=== PATIENT | female | born 2000 | race Caucasian/White ===

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

== ENCOUNTER 2020-01-30 19:11 | Inpatient (IN) ==
[2020-01-30 19:50] LABS: Pregnancy Test, Urine Negative (Negative)
[2020-01-30 19:51] LABS: Appearance Urine Cloudy (Clear); Bacteria Urine Automated 1+ (Negative); Bilirubin Urine Negative (Negative); Blood Urine Negative (Negative); Color Urine Yellow; Epithelial Cell Urine Auto >30 /lpf (0-5); Glucose Urine UA Negative (Negative); Ketones Urine Negative (Negative); Leukocyte Esterase Urine Trace (Negative); Nitrite Urine Negative (Negative); Protein Urine Negative (Negative); Urobilinogen Urine Negative (Negative); pH Urine >= 9.0 (4.5-7.5)
--- NOTE | 2020-01-30 19:56 | Emergency Department Note ---
Impression & Plan Suicidal ideation, Depression ED Provider Note NAME: NICOLE TUCKER AGE: 19 SEX: F : 2000 ARRIVES VIA: Walk-In INFORMANT: Patient, ED PROVIDER(S): Ja Simms MD Chief Complaint: Suicidal ideation HPI: Patient is present with suicidal ideation postcleaning. The patient has had worsening thoughts over the last week and initially had thought about running off the road and then has had a plan to run off the road with her vehicle. The patient does not have any prior attempts of suicide. The patient denies HI or AVH. The patient did recently move home to live with her parents with her girlfriend so there have been some adjustments there. The patient has had adequate appetite but has had decreased sleep. The patient has been compliant with her current medications. ROS: See HPI for pertinent positives and negatives. A total of 10 systems were reviewed and otherwise negative. Past medical history: See below Surgical history: See below Social history: See below Physical Exam: GENERAL: Well appearing, well nourished, NAD, non-toxic. EYE EXAM: Normal conjunctiva. PERRL, no anisocoria and EOM's grossly intact w/o pain. [OROPHARYNX: Moist mucus membranes. Grossly normal dentition. ] NECK: Supple, no nuchal rigidity, no adenopathy, non-tender. No signs of meningismus. LUNGS: Clear to auscultation. Normal chest wall mechanics. HEART: NSR, no MRG. ABDOMEN: Abdomen soft, non-tender, normo-active bowel sounds, no masses, no rebound or guarding. BACK: No CVA TTP. SKIN: No rashes and no bruising. UPPER EXTREMITIES: Upper extremities are grossly normal. LOWER EXTREMITIES: Grossly normal, no edema. NEURO EXAM: A&O x3, cranial nerves II-XII grossly intact, normal speech, moves all 4 extremities on command w/o issue. Psych: Positive SI with plan, negative HI or AVH. Differential diagnoses: Mood disorder, infection, hypoglycemia, electrolyte abnormalities, cardiac sources, intracerebral event, toxicologic, trauma, neurologic, as well as other pathologies. Course: Patient was seen and evaluated the bedside. Full history physical exam was performed. MDM: Patient was seen due to concern for SI with plan. Blood work was obtained. Very mild hypokalemia which is ordered for repleted. The patient was seen and evaluated by psych registered nurse hh case manager deemed a voluntary 201 admission. The patient subsequently admitted to 3 S. Past Med/Surg History Medical History Acid reflux Anal fissure Atypical nevi Depression with anxiety Exercise-induced bronchospasm X 1 Lactase deficiency Ovarian cyst Surgical History History of tonsillectomy History of tooth extraction WISDOM TEETH S/P adenoidectomy S/P tube myringotomy Family History Grandfather (Paternal) Breast cancer Mother Hypertension Grandmother (Maternal) Diabetes Grandfather (Maternal) Factor V Leiden mutation Father Allergic rhinitis Denies family history of Ovarian cancer Colorectal cancer Social History Smoking Status: Current every day smoker Tobacco Type: E-cigarettes / Vaping Cigarettes Per Day: VAPES DAILY-SEVERAL; Second Hand Exposure: No; Hx Alcohol Use: Yes Alcohol type: wine Hx Substance Use: No Preferred Language: Belarusian Communication Ability: Effective Visual Impairment: No Limitations Hearing Ability: Normal Staple Shear Operator Required: No Beliefs That Will Affect Care: None marital status: Single Current Living Situation: Other current occupational status: employed Feels Safe at Home: Yes Childhood Exposure to Second-Hand Smoke: No Sexual Activity: has been sexually active within the last 12 months Allergies Allergies Allergy/AdvReac Type Severity Reaction Status Date / Time venlafaxine Allergy Intermediate shortness Verified 08/23/19 09:33 of breath, abdominal pain, visual changes Home Meds Home Medications Medication Instructions Recorded Confirmed cetirizine 10 mg capsule 10 mg PO DAILY PRN 02/01/19 01/30/20 multivitamin with iron 1 tab PO QAM 02/01/19 01/30/20 lactase 9,000 unit chewable tablet 9,000 units PO AC PRN tab 03/05/19 01/30/20 Previous Rx's Medication Instructions Recorded pantoprazole 40 mg tablet,delayed 40 mg PO DAILY #30 tab 10/01/19 release citalopram 10 mg tablet 10 mg PO DAILY #30 tab 01/08/20 Results & Data (ED) Vital Signs Vital Signs - 24 hr 08/12/20 19:16 01/30/20 21:14 01/30/20 23:01 Temperature 37 C Temperature Source Oral Pulse Rate 108 H Pulse Rate [Finger] 88 86 Respiratory Rate 18 18 18 Respiratory Effort / Characteristics Non-Labored Non-Labored Non-Labored Spontaneous Respiratory Depth Normal Normal Respiratory Pattern Regular Blood Pressure 124/75 Blood Pressure [Right Arm] 98/56 L 96/63 L Blood Pressure Mean 91 Blood Pressure Mean [Right Arm] 70 74 Pulse Oximetry 100 98 99 Oxygen Delivery Method Room Air Room Air Room Air Sepsis Recent Fever Within 48 Hours No Sepsis New/Unexplained Change in Mental Status No Sepsis Action Taken by Nursing No Action Required Home Medications Current Medication List: was personally reviewed by me Laboratory Data Attestation: I reviewed the patient's lab results. Result diagrams: 01/30/20 20:19 01/30/20 20:19 Lab Results 01/30/20 01/30/20 01/30/20 Range/Units 19:22 19:22 19:22 WBC (4.8-10.8) K/uL RBC (4.2-5.4) M/uL Hgb (12.0-16.0) g/dL Hct (37-47) % MCV (80-100) fL MCH (25-34) pg MCHC (32-36) g/dL RDW Std Deviation (36.4-46.3) fL RDW Coeff of Vadim (11.5-14.5) % Plt Count (130-400) K/uL MPV (7.4-10.4) fL Immature Gran % (Auto) % Neut % (Auto) % Lymph % (Auto) % [place] % (Auto) % Eos % (Auto) % Baso % (Auto) % Neut # (Auto) (1.4-6.5) K/uL Lymph # (Auto) (1.2-3.4) K/uL [place] # (Auto) (0.11-0.59) K/uL Eos # (Auto) (0-0.5) K/uL Baso # (Auto) (0-0.2) K/uL Immature Gran # (Auto) (0.00-0.02) K/uL Sodium (136-145) mmol/L Potassium (3.5-5.1) mmol/L Chloride (98-107) mmol/L Carbon Dioxide (21-32) mmol/L Anion Gap (3-11) BUN (7-18) mg/dl Creatinine (0.6-1.2) mg/dl Est Cr Clr Drug Dosing ml/min Est GFR ( Amer) Est GFR (Non-Af Amer) BUN/Creatinine Ratio (10-20) Glucose (70-99) mg/dl Calcium (8.5-10.1) mg/dl Total Bilirubin (0.2-1) mg/dl AST (15-37) U/L ALT (12-78) U/L Alkaline Phosphatase (45-117) U/L Total Protein (6.4-8.2) gm/dl Albumin (3.4-5.0) gm/dl Globulin (2.5-4.0) gm/dl Albumin/Globulin Ratio (0.9-2) TSH (0.300-4.500) uIu/ml Urine Color Yellow Urine Appearance Cloudy A (Clear) Urine pH >= 9.0 H (4.5-7.5) Ur Specific [place] 1.020 (1.000-1.030) Urine Protein Negative (Negative) Urine Glucose (UA) Negative (Negative) Urine Ketones Negative (Negative) Urine Blood Negative (Negative) Urine Nitrite Negative (Negative) Urine Bilirubin Negative (Negative) Urine Urobilinogen Negative (Negative) Ur Leukocyte Esterase Trace H (Negative) Urine WBC (Auto) 1-5 (0-5) /hpf Urine RBC (Auto) 0-4 (0-4) /hpf U Hyaline Cast (Auto) 1-5 (0-5) /lpf U Epithel Cells (Auto) >30 H (0-5) /lpf Urine Bacteria (Auto) 1+ H (Negative) Urine Test Negative (Negative) Salicylates (2.8-20) mg/dl Urine Opiates Screen Neg (Neg) Ur Methadone, Qual Neg (Neg) Acetaminophen (10-30) ug/ml Urine Barbiturates Neg (Neg) Ur Phencyclidine (PCP) Neg (Neg) U Amphetamin/Meth Scrn Neg (Neg) MDMA (Ecstasy) Screen Neg (Neg) U Benzodiazepines Scrn Neg (Neg) Ur Cocaine Metabolite Neg (Neg) U Marijuana (THC) Screen Neg (Neg) Ethyl Alcohol mg/dL (0-3) mg/dl 01/30/20 01/30/20 01/30/20 Range/Units 20:19 20:19 20:19 WBC 13.62 H (4.8-10.8) K/uL RBC 4.76 (4.2-5.4) M/uL Hgb 14.2 (12.0-16.0) g/dL Hct 42.7 (37-47) % MCV 89.7 (80-100) fL MCH 29.8 (25-34) pg MCHC 33.3 (32-36) g/dL RDW Std Deviation 39.9 (36.4-46.3) fL RDW Coeff of Vadim 12.3 (11.5-14.5) % Plt Count 294 (130-400) K/uL MPV 10.2 (7.4-10.4) fL Immature Gran % (Auto) 0.6 % Neut % (Auto) 49.8 % Lymph % (Auto) 38.4 % [place] % (Auto) 10.0 % Eos % (Auto) 1.0 % Baso % (Auto) 0.2 % Neut # (Auto) 6.78 H (1.4-6.5) K/uL Lymph # (Auto) 5.23 H (1.2-3.4) K/uL [place] # (Auto) 1.36 H (0.11-0.59) K/uL Eos # (Auto) 0.14 (0-0.5) K/uL Baso # (Auto) 0.03 (0-0.2) K/uL Immature Gran # (Auto) 0.08 H (0.00-0.02) K/uL Sodium 141 (136-145) mmol/L Potassium 3.0 L (3.5-5.1) mmol/L Chloride 110 H (98-107) mmol/L Carbon Dioxide 23 (21-32) mmol/L Anion Gap 8.0 (3-11) BUN 18 (7-18) mg/dl Creatinine 1.02 (0.6-1.2) mg/dl Est Cr Clr Drug Dosing 62.7 ml/min Est GFR ( Amer) 91.1 Est GFR (Non-Af Amer) 78.6 BUN/Creatinine Ratio 17.8 (10-20) Glucose 79 (70-99) mg/dl Calcium 8.8 (8.5-10.1) mg/dl Total Bilirubin 0.3 (0.2-1) mg/dl AST 14 L (15-37) U/L ALT 20 (12-78) U/L Alkaline Phosphatase 104 (45-117) U/L Total Protein 6.8 (6.4-8.2) gm/dl Albumin 3.6 (3.4-5.0) gm/dl Globulin 3.2 (2.5-4.0) gm/dl Albumin/Globulin Ratio 1.1 (0.9-2) TSH 1.700 (0.300-4.500) uIu/ml Urine Color Urine Appearance (Clear) Urine pH (4.5-7.5) Ur Specific [place] (1.000-1.030) Urine Protein (Negative) Urine Glucose (UA) (Negative) Urine Ketones (Negative) Urine Blood (Negative) Urine Nitrite (Negative) Urine Bilirubin (Negative) Urine Urobilinogen (Negative) Ur Leukocyte Esterase (Negative) Urine WBC (Auto) (0-5) /hpf Urine RBC (Auto) (0-4) /hpf U Hyaline Cast (Auto) (0-5) /lpf U Epithel Cells (Auto) (0-5) /lpf Urine Bacteria (Auto) (Negative) Urine Test (Negative) Salicylates < 1.7 L (2.8-20) mg/dl Urine Opiates Screen (Neg) Ur Methadone, Qual (Neg) Acetaminophen < 2 L (10-30) ug/ml Urine Barbiturates (Neg) Ur Phencyclidine (PCP) (Neg) U Amphetamin/Meth Scrn (Neg) MDMA (Ecstasy) Screen (Neg) U Benzodiazepines Scrn (Neg) Ur Cocaine Metabolite (Neg) U Marijuana (THC) Screen (Neg) Ethyl Alcohol mg/dL (0-3) mg/dl 01/30/20 Range/Units 20:19 WBC (4.8-10.8) K/uL RBC (4.2-5.4) M/uL Hgb (12.0-16.0) g/dL Hct (37-47) % MCV (80-100) fL MCH (25-34) pg MCHC (32-36) g/dL RDW Std Deviation (36.4-46.3) fL RDW Coeff of Vadim (11.5-14.5) % Plt Count (130-400) K/uL MPV (7.4-10.4) fL Immature Gran % (Auto) % Neut % (Auto) % Lymph % (Auto) % [place] % (Auto) % Eos % (Auto) % Baso % (Auto) % Neut # (Auto) (1.4-6.5) K/uL Lymph # (Auto) (1.2-3.4) K/uL [place] # (Auto) (0.11-0.59) K/uL Eos # (Auto) (0-0.5) K/uL Baso # (Auto) (0-0.2) K/uL Immature Gran # (Auto) (0.00-0.02) K/uL Sodium (136-145) mmol/L Potassium (3.5-5.1) mmol/L Chloride (98-107) mmol/L Carbon Dioxide (21-32) mmol/L Anion Gap (3-11) BUN (7-18) mg/dl Creatinine (0.6-1.2) mg/dl Est Cr Clr Drug Dosing ml/min Est GFR ( Amer) Est GFR (Non-Af Amer) BUN/Creatinine Ratio (10-20) Glucose (70-99) mg/dl Calcium (8.5-10.1) mg/dl Total Bilirubin (0.2-1) mg/dl AST (15-37) U/L ALT (12-78) U/L Alkaline Phosphatase (45-117) U/L Total Protein (6.4-8.2) gm/dl Albumin (3.4-5.0) gm/dl Globulin (2.5-4.0) gm/dl Albumin/Globulin Ratio (0.9-2) TSH (0.300-4.500) uIu/ml Urine Color Urine Appearance (Clear) Urine pH (4.5-7.5) Ur Specific [place] (1.000-1.030) Urine Protein (Negative) Urine Glucose (UA) (Negative) Urine Ketones (Negative) Urine Blood (Negative) Urine Nitrite (Negative) Urine Bilirubin (Negative) Urine Urobilinogen (Negative) Ur Leukocyte Esterase (Negative) Urine WBC (Auto) (0-5) /hpf Urine RBC (Auto) (0-4) /hpf U Hyaline Cast (Auto) (0-5) /lpf U Epithel Cells (Auto) (0-5) /lpf Urine Bacteria (Auto) (Negative) Urine Test (Negative) Salicylates (2.8-20) mg/dl Urine Opiates Screen (Neg) Ur Methadone, Qual (Neg) Acetaminophen (10-30) ug/ml Urine Barbiturates (Neg) Ur Phencyclidine (PCP) (Neg) U Amphetamin/Meth Scrn (Neg) MDMA (Ecstasy) Screen (Neg) U Benzodiazepines Scrn (Neg) Ur Cocaine Metabolite (Neg) U Marijuana (THC) Screen (Neg) Ethyl Alcohol mg/dL < 3.0 (0-3) mg/dl Administered Medications Discontinued Medications Potassium Chloride (Potassium Chloride 20 Meq Tabcr) 40 meq PO NOW STA Stop: 01/30/20 21:20 Last Admin: 01/30/20 21:24 Dose: 40 meq Documented by: [id number] Discharge Plan Visit Data Chief Complaint: Mental Health Evaluation Stated Complaint: MENTAL HEALTH EVAL ED Provider: Ja Simms Discharge Problem: Suicidal ideation, Depression Forms Stand Alone Forms: Pending Sale To [facility], Suicide Prevention Resources Prescriptions Prescriptions: No Action pantoprazole [Protonix] 40 mg tablet,delayed release (DR/EC) 40 mg PO DAILY Qty: 30 RF: 5 multivitamin with iron tablet 1 tab PO QAM RF: 0 Zyrtec 10 mg capsule 10 mg PO DAILY PRN (Reason: allergy symptoms) RF: 0 Lactaid Fast Act 9,000 unit tablet,chewable 9,000 units PO AC PRN (Reason: lactose intolerance) RF: 0 citalopram 10 mg tablet 10 mg PO DAILY Qty: 30 RF: 2 Discharge Problem: Depression Qualifiers: Depression Type: major depressive disorder Major depression recurrence: single episode Active/Remission status: currently active Major depression episode severity: moderate Qualified Code(s): F32.1 - Major depressive disorder, single episode, moderate
[2020-01-30 20:02] LABS: RBC Urine Automated 0-4 /hpf (0-4)
[2020-01-30 20:10] LABS: Amphetamines+Metham, Urine Neg (Neg); Barbiturates, Urine Neg (Neg); Benzodiazepine, Urine Neg (Neg); Cocaine, Urine Neg (Neg); MDMA (Ecstacy), Urine Neg (Neg); Methadone, Urine Neg (Neg); Opiate, Urine Neg (Neg); Phencyclidine, Urine Neg (Neg)
[2020-01-30 20:45] LABS: Hematocrit (blood only) 42.7 % (37-47); Hemoglobin 14.2 g/dL (12.0-16.0); Mean Corpuscular Hemoglobin 29.8 pg (25-34); Mean Corpuscular Hgb Conc 33.3 g/dL (32-36); Mean Corpuscular Volume 89.7 fL (80-100); Mean Platelet Volume 10.2 fL (7.4-10.4); Platelet Count 294 K/uL (130-400); RDW Coefficient of Variation 12.3 % (11.5-14.5); RDW Standard Deviation 39.9 fL (36.4-46.3); Red Blood Count 4.76 M/uL (4.2-5.4); White Blood Count 13.62 K/uL (4.8-10.8)
[2020-01-30 21:04] LABS: Albumin Level 3.6 gm/dl (3.4-5.0); BUN Creatinine Ratio 17.8 (10-20); Calcium 8.8 mg/dl (8.5-10.1); Creatinine Clr Calc Pharmacy 62.7 ml/min; Est GFR (African American) 91.1; Est GFR (Non-African American) 78.6
[2020-01-30 21:07] LABS: Basophils # (auto) 0.03 K/uL (0-0.2); Basophils % (auto) 0.2 %; Eosinophils # (auto) 0.14 K/uL (0-0.5); Immature Granulocytes # (auto) 0.08 K/uL (0.00-0.02); Immature Granulocytes % (auto) 0.6 %; Lymphocytes # (auto) 5.23 K/uL (1.2-3.4); Lymphocytes % (auto) 38.4 %; Monocytes # (auto) 1.36 K/uL (0.11-0.59); Neutrophils # (auto) 6.78 K/uL (1.4-6.5); Neutrophils % (auto) 49.8 %
[2020-01-30 21:15] LABS: Albumin Globulin Ratio 1.1 (0.9-2); Bilirubin,Total 0.3 mg/dl (0.2-1); Globulin 3.2 gm/dl (2.5-4.0); Thyroid Stimulating Hormone 1.7 uIu/ml (0.300-4.500); Total Protein 6.8 gm/dl (6.4-8.2)
[2020-01-30] MEDS ORDERED: POTASSIUM CHLORIDE 20 MEQ TABCR PO STA (21:19)
[2020-01-30 21:21] LABS: Acetaminophen < 2 ug/ml (10-30); Salicylate < 1.7 mg/dl (2.8-20)
[2020-01-31] MEDS ORDERED: NICOTINE POLACRILEX 2 MG GUM MT PRN (01:17)
[2020-01-31] MEDS ORDERED: BISMUTH SUBSALICYLATE PER ML OMNICELL CHARGE PO PRN (01:17)
[2020-01-31] MEDS ORDERED: SODIUM CHLORIDE 0.65% NA SOLN 45 ML (OCEAN) PRN (01:17)
[2020-01-31] MEDS ORDERED: MAGNESIUM HYDROXIDE SUSP 30 ML UDC PO PRN (01:17)
[2020-01-31] MEDS ORDERED: ALUMINUM/MAGNESIUM SUSP 30 ML UDC PO PRN (01:17)
[2020-01-31] MEDS ORDERED: ACETAMINOPHEN 325 MG TAB PO PRN (01:17)
[2020-01-31] MEDS ORDERED: CETIRIZINE HCL 10 MG TABLET PO PRN (06:29)
[2020-01-31] MEDS ORDERED: CITALOPRAM 20 MG TAB PO SCH (09:00)
[2020-01-31] MEDS: PANTOprazole 40 MG TAB PO SCH (09:55)
--- NOTE | 2020-01-31 10:55 | History & Physical ---
Date of Service January 31, 2020 Impression / Recommendations Impression 19-year-old female who lives with her mother in [place], has a history of depression and anxiety since she was 8 years old, multiple previous antidepressant trials from her PCP, started on low-dose citalopram 3 weeks ago, who presented with worsening mood and suicidal thoughts. She signed in voluntarily but states she only did that to avoid being committed, and only wanted help with outpatient treatment. She had been given contact information by her PCP but had not followed through, and would benefit from outpatient therapy and psychiatric care. We will continue to titrate citalopram as her dose has not been escalated from 10 mg daily, and she will need a family meeting with her mother and discharge safety planning. Inpatient treatment is medically necessary due to severity of presenting symptoms and risk for suicide if discharged prematurely. (1) Suicidal ideation: 01/30 -every 15 minute checks for safety, encourage group attendance and participation, work on healthy coping skills and discharge safety plan. (2) Depression: 01/30 -reviewed options, including switch to a different antidepressant (although we do not have a full medication history so I am not sure what she has tried in the past), or titrating citalopram as she has never been on doses over 10 mg. She agreed to increase her dose to 20 mg. Continue to titrate to an effective dose. -Family meeting with mother. Reviewed recommendations that guns be secured until she has stabilized. -Refer for outpatient psychiatric care and therapy. Active/Remission status: currently active Depression Type: major depressive disorder Major depression episode severity: moderate Major depression recurrence: single episode Qualified Code(s): F32.1 - Major depressive disorder, single episode, moderate (3) Nicotine addiction: Offer patch and gum as needed for cravings. Risk Factors Assessment Male: No : Yes Do You Have Access To A Gun?: Yes (She hunts and has guns at father's house) Health Problems: Yes Mental Health Diagnoses: Yes Substance Use Disorders: Yes Previous Attempt: No Family History of Suicide: No Previous Psychiatric Hospitalization: No Hopelessness: No Smoker: Yes Protective Factors Assessment Tenriism Beliefs: No : No Responsible for Young Children: No Employed: Yes ([employer]) Stable Relationships: No Supportive Family: Yes Psychiatric History Identifying Data NICOLE TUCKER is a 19-year-old F who currently lives in [place] with her mother, has a history of depression and anxiety, and was admitted on 01/31/20 01:17 on a 201 voluntary commitment for suicidal ideation with thoughts to drive off the road. Chief Complaint " I mainly came in because, like, I've struggled with depression and anxiety, recently they put me on Celexa, told me if it wasn't really working I should see a psychiatrist, but I did not really know how to go about that, felt stuck." History of Present Illness Patient presented to the ER overnight reporting "mental breakdowns" over the past week, and thoughts that "the only way out is to harm myself." She endorsed thoughts of running her car off the road she has no outpatient mental health services, and her PCP prescribes citalopram. She reported frequent mood swings which she described as "like a switch," stating she gets irritable and agitated "over small things." She reported poor sleep, decreased appetite, and "social" alcohol use, but denied drug use. Denied hallucinations, paranoia, delusions, and current SIB, but reported to history of cutting superficially as an adolescent. Stressors include that she moved to [place], [place] in June to live with her girlfriend, but the move and her new job there were str essful, so she moved back to [place] to live with her mother 1 month ago. She travels to [place] on weekends to see her girlfriend. Admission labs were notable for WBC 13.62, potassium 3.0, chloride 110, AST 14, UA with elevated urine pH, trace leukocyte esterase, > 30 epithelial cells and 1+ bacteria, negative test, and negative UDS. She initially agreed to the recommendations for voluntary treatment, but then said she wanted to go home. 302 involuntary commitment was discussed, and she then agreed to sign in, but immediately submitted a 72-hour notice on arrival to the unit. She was tearful and asked multiple times to go home, saying she only came into the hospital to get outpatient treatment. On my assessment, she states that she does not want to be here, feels the ER did not listen to her and "forced me to sign in," by threatening to 302 her. She states that she only came to the ER because she wanted help with setting up outpatient treatment, and that she had not followed through on the referrals given to her by her PCP because she was busy with work and driving back and forth to [place], as she went on vacation there last week to visit her girlfriend. 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 She reports mood has been poor since June, with depression, irritability, decreased interest, motivation, and energy, and disrupted sleep (increased latency, then does not want to get up in the morning). She endorses suicidal thoughts that occur "sometimes when I am driving," with thoughts to drive her car off the edge of the road, but denies any intent to act on these. She wonders if she has bipolar because she often gets angry at her girlfriend about the division of housework, and will "blow up," although denies physical aggression. Denies symptoms consistent with sahra, psychosis, panic, and OCD. Report excessive worry, typically about what others think of her and about her job, with episodes of hand and throat numbness and a sensation of her heart racing which can last minutes to hours. She typically uses coping skills to manage anxiety. She lost 17 pounds in the past 1-1/2 years and attributes this to using a nicotine vapor pen. She reports a history of limited medication adherence, stating she frequently forgets to take her medication. She was just started on citalopram 3 weeks ago, and denies side effects. She is willing for a family meeting with her mother and referrals for outpatient treatment, and repeatedly asks if she can be discharged today. Past Psychiatric History Previous Psych History: PCP note from 01/08/2020 reviewed: Patient reported worsening mood since moving back to [place] from [place] 1 to 2 months ago. She was continuing in a long distance same-sex relationship with her girlfriend who remained in [place]. She reported a longstanding history of depression and anxiety since age 8 or 9 when her parents . She had seen therapists in the past, but felt uncomfortable talking to them. She reported trying multiple different medications in the past, including SSRIs, SNRIs, and bupropion. She was on sertraline 50 mg at the time and was offered a higher dose of sertraline or switch to a different medication, and shows a trial of citalopram, started on 10 mg. She was advised to make an appointment with a psychiatrist and given contact information for [facility] and [facility]. Current Psychiatric Diagnosis: Depression/Anxiety Outpatient Services: No mental health services. Has never seen a psychiatrist. PCP Dr. Angela Reed prescribes citalopram. Previous Psych Admissions: Denies Do You Have Access To A Gun?: Yes (She hunts and has guns at father's house) History of Previous Suicide Attempt: No Past Medication Trials: Escitalopram -cannot recall reaction sertraline ineffective at 50 mg Venlafaxine XR -"allergic-nausea, throat and vision felt weird" Bupropion Others as a child that she does not recall Allergies Allergy/AdvReac Type Severity Reaction Status Date / Time venlafaxine Allergy Intermediate shortness Verified 08/23/19 09:33 of breath, abdominal pain, visual changes Home Medications Home Medications Medication Instructions Recorded Confirmed Type cetirizine 10 mg capsule 10 mg PO DAILY PRN 02/01/19 01/30/20 History pantoprazole 40 mg tablet,delayed 40 mg PO DAILY #30 tab 10/01/19 01/30/20 Rx release citalopram 10 mg tablet 10 mg PO DAILY #30 tab 01/08/20 01/30/20 Rx Family History Family History of: Depression and Anxiety Alcohol History Hx of Alcohol Use Over the Past 12 Months: Yes (Occassional/social) AUDIT Total Score: 0 Smoking Use Have You Smoked or Used Tobacco Products in the Last 30 Days: Yes tobacco type: e-cigarettes Smoking Status: Current every day smoker Smoking packs per day: 1 Substance History Hx of Prescription Med Misuse Over the Past 12 Months: No Hx of Over the Counter Med Misuse Over the Past 12 Months: No Hx of Inhalent Misuse Over the Past 12 Months: No Hx of Organic Substance Use Over the Past 12 Months: No Hx of Illegal Substances/Street Drug Use Over Past 12 Months: No Problems as a Result of Past Substance Use: None Identified Personal History Living Arrangements: Home Living Arrangements Comments: With mother in [place] -good relationship. Father and sister also lives locally. 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) Marital Status: Single Number Of Children: 0 Beliefs That Will Affect Care: None Patient History Medical History Acid reflux Anal fissure Atypical nevi Depression with anxiety Exercise-induced bronchospasm X 1 Lactase deficiency Ovarian cyst Surgical History History of tonsillectomy History of tooth extraction WISDOM TEETH S/P adenoidectomy S/P tube myringotomy Family History Grandfather (Paternal) Breast cancer Mother Hypertension Grandmother (Maternal) Diabetes Grandfather (Maternal) Factor V Leiden mutation Father Allergic rhinitis Denies family history of Ovarian cancer Colorectal cancer Social History Smoking Status: Current every day smoker Tobacco Type: E-cigarettes / Vaping Cigarettes Per Day: VAPES DAILY-SEVERAL; Second Hand Exposure: No; Hx Alcohol Use: Yes Alcohol type: wine Hx Substance Use: No Preferred Language: Maltese Communication Ability: Effective Visual Impairment: No Limitations Hearing Ability: Normal Rag Boiler Required: No Beliefs That Will Affect Care: None marital status: Single Current Living Situation: Other current occupational status: employed Feels Safe at Home: Yes Childhood Exposure to Second-Hand Smoke: No Sexual Activity: has been sexually active within the last 12 months Review of Systems Review of Systems: All systems reviewed & are unremarkable except as noted in Subjective Physical Exam Psychiatric: Orientation: alert, oriented x 3 and cooperative Apperance: a ppropriately dressed, appropriately groomed and appeared stated age Eye Contact: + fair eye contact Motor Behavior: steady gait and station and no abnormal motor movements Speech: normal rate/rhythm/volume of speech Affect: + blunted affect Mood: + depressed mood and + anxious mood Thought Process: goal directed thought process Thought Content: + preoccupation Suicidal Thoughts: + reports suicidal thoughts Homicidal Thoughts: + reports homicidal thoughts Hallucinations: no auditory hallucinations and no visual hallucinations Cognition: recent memory grossly intact, remote memory grossly intact, attention grossly intact and language grossly intact Estimated Intelligence: consistent with education level Insight: + limited insight Judgement: + limited judgement Vital Signs (Past 24 Hours): Last Vital Signs Temp 36.7 C 01/31/20 06:36 Pulse 87 01/31/20 06:37 Resp 18 01/31/20 06:36 BP 110/72 01/31/20 06:37 Pulse Ox 100 01/31/20 02:15 Exam Statement: A physical exam was performed in the ER prior to admission to the unit by Dr. Ja Simms. I accept that physical as correct/medical clearance for the inpatient physical exam. Results & Data ([facility]) Laboratory Results Laboratory Results - last 24 hr 01/30/20 01/30/20 01/30/20 19:22 19:22 19:22 WBC RBC Hgb Hct MCV MCH MCHC RDW Std Deviation RDW Coeff of Vadim Plt Count MPV Immature Gran % (Auto) Neut % (Auto) Lymph % (Auto) Wise % (Auto) Eos % (Auto) Baso % (Auto) Neut # (Auto) Lymph # (Auto) Wise # (Auto) Eos # (Auto) Baso # (Auto) Immature Gran # (Auto) Sodium Potassium Chloride Carbon Dioxide Anion Gap BUN Creatinine Est Cr Clr Drug Dosing Est GFR ( Amer) Est GFR (Non-Af Amer) BUN/Creatinine Ratio Glucose Calcium Total Bilirubin AST ALT Alkaline Phosphatase Total Protein Albumin Globulin Albumin/Globulin Ratio TSH Urine Color Yellow Urine Appearance Cloudy A Urine pH >= 9.0 H Ur Specific Independence 1.020 Urine Protein Negative Urine Glucose (UA) Negative Urine Ketones Negative Urine Blood Negative Urine Nitrite Negative Urine Bilirubin Negative Urine Urobilinogen Negative Ur Leukocyte Esterase Trace H Urine WBC (Auto) 1-5 Urine RBC (Auto) 0-4 U Hyaline Cast (Auto) 1-5 U Epithel Cells (Auto) >30 H Urine Bacteria (Auto) 1+ H Urine Test Negative Salicylates Urine Opiates Screen Neg Ur Methadone, Qual Neg Acetaminophen Urine Barbiturates Neg Ur Phencyclidine (PCP) Neg U Amphetamin/Meth Scrn Neg MDMA (Ecstasy) Screen Neg U Benzodiazepines Scrn Neg Ur Cocaine Metabolite Neg U Marijuana (THC) Screen Neg Ethyl Alcohol mg/dL 01/30/20 01/30/20 01/30/20 20:19 20:19 20:19 WBC 13.62 H RBC 4.76 Hgb 14.2 Hct 42.7 MCV 89.7 MCH 29.8 MCHC 33.3 RDW Std Deviation 39.9 RDW Coeff of Vadim 12.3 Plt Count 294 MPV 10.2 Immature Gran % (Auto) 0.6 Neut % (Auto) 49.8 Lymph % (Auto) 38.4 Wise % (Auto) 10.0 Eos % (Auto) 1.0 Baso % (Auto) 0.2 Neut # (Auto) 6.78 H Lymph # (Auto) 5.23 H Wise # (Auto) 1.36 H Eos # (Auto) 0.14 Baso # (Auto) 0.03 Immature Gran # (Auto) 0.08 H Sodium 141 Potassium 3.0 L Chloride 110 H Carbon Dioxide 23 Anion Gap 8.0 BUN 18 Creatinine 1.02 Est Cr Clr Drug Dosing 62.7 Est GFR ( Amer) 91.1 Est GFR (Non-Af Amer) 78.6 BUN/Creatinine Ratio 17.8 Glucose 79 Calcium 8.8 Total Bilirubin 0.3 AST 14 L ALT 20 Alkaline Phosphatase 104 Total Protein 6.8 Albumin 3.6 Globulin 3.2 Albumin/Globulin Ratio 1.1 TSH 1.700 Urine Color Urine Appearance Urine pH Ur Specific Independence Urine Protein Urine Glucose (UA) Urine Ketones Urine Blood Urine Nitrite Urine Bilirubin Urine Urobilinogen Ur Leukocyte Esterase Urine WBC (Auto) Urine RBC (Auto) U Hyaline Cast (Auto) U Epithel Cells (Auto) Urine Bacteria (Auto) Urine Test Salicylates < 1.7 L Urine Opiates Screen Ur Methadone, Qual Acetaminophen < 2 L Urine Barbiturates Ur Phencyclidine (PCP) U Amphetamin/Meth Scrn MDMA (Ecstasy) Screen U Benzodiazepines Scrn Ur Cocaine Metabolite U Marijuana (THC) Screen Ethyl Alcohol mg/dL 01/30/20 20:19 WBC RBC Hgb Hct MCV MCH MCHC RDW Std Deviation RDW Coeff of Vadim Plt Count MPV Immature Gran % (Auto) Neut % (Auto) Lymph % (Auto) Wise % (Auto) Eos % (Auto) Baso % (Auto) Neut # (Auto) Lymph # (Auto) Wise # (Auto) Eos # (Auto) Baso # (Auto) Immature Gran # (Auto) Sodium Potassium Chloride Carbon Dioxide Anion Gap BUN Creatinine Est Cr Clr Drug Dosing Est GFR ( Amer) Est GFR (Non-Af Amer) BUN/Creatinine Ratio Glucose Calcium Total Bilirubin AST ALT Alkaline Phosphatase Total Protein Albumin Globulin Albumin/Globulin Ratio TSH Urine Color Urine Appearance Urine pH Ur Specific Independence Urine Protein Urine Glucose (UA) Urine Ketones Urine Blood Urine Nitrite Urine Bilirubin Urine Urobilinogen Ur Leukocyte Esterase Urine WBC (Auto) Urine RBC (Auto) U Hyaline Cast (Auto) U Epithel Cells (Auto) Urine Bacteria (Auto) Urine Test Salicylates Urine Opiates Screen Ur Methadone, Qual Acetaminophen Urine Barbiturates Ur Phencyclidine (PCP) U Amphetamin/Meth Scrn MDMA (Ecstasy) Screen U Benzodiazepines Scrn Ur Cocaine Metabolite U Marijuana (THC) Screen Ethyl Alcohol mg/dL < 3.0 Current Inpatient Medications Current Inpatient Medications: Current Inpatient Medications Acetaminophen (Acetaminophen 325 Mg Tab) 650 mg PO Q4H PRN PRN Reason: Headache or Minor Fever Stop: 03/01/20 01:16 Al Hydrox/Mg Hydrox/Simethicone (Aluminum/Magnesium Susp 30 Ml Udc) 30 ml PO Q4H PRN PRN Reason: GI Upset Stop: 03/01/20 01:16 Bismuth Subsalicylate (Bismuth Subsalicylate Per Ml Omnicell Charge) 15 ml PO PRN PRN PRN Reason: Loose Stool Stop: 03/01/20 01:16 Cetirizine HCl (Cetirizine Hcl 10 Mg Tablet) 10 mg PO DAILY PRN PRN Reason: allergy symptoms Stop: 03/01/20 06:28 Citalopram Hydrobromide (Citalopram 20 Mg Tab) 10 mg PO DAILY [facility] Stop: 03/01/20 08:59 Last Admin: 01/31/20 09:36 Dose: 10 mg Documented by: Hydroxyzine HCl (Hydroxyzine Hcl 25 Mg Tab) 50 mg PO HSZ PRN PRN Reason: Insomnia Stop: 03/01/20 01:16 Hydroxyzine HCl (Hydroxyzine Hcl 25 Mg Tab) 25 mg PO Q4H PRN PRN Reason: Anxiety Stop: 03/01/20 01:16 Magnesium Hydroxide (Magnesium Hydroxide Susp 30 Ml Udc) 30 ml PO DAILY PRN PRN Reason: Constipation Stop: 03/01/20 01:16 Miscellaneous (Remove Nicoderm Patch) 1 ea N/A DAILY@[id number] [facility] Stop: 03/01/20 08:58 Nicotine (Nicotine 21 Mg/24 Hr Tdsy) 21 mg TD QAM [facility] Stop: 03/01/20 08:59 Nicotine Polacrilex (Nicotine Polacrilex 2 Mg Gum) 2 piece MT PRN PRN PRN Reason: Nicotine Withdrawal Stop: 03/01/20 01:16 Pantoprazole Sodium (Pantoprazole 40 Mg Tab) 40 mg PO DAILY [facility] Stop: 03/01/20 08:59 Last Admin: 01/31/20 09:55 Dose: Not Given Documented by: Sodium Chloride (Sodium Chloride 0.65% Na Soln 45 Ml (Greenback)) 1 - 2 sprays NA PRN PRN PRN Reason: Nasal Dryness/Congestion Stop: 03/01/20 01:16
[2020-01-31] MEDS ORDERED: CITALOPRAM 20 MG TAB PO ONE (12:00)
[2020-01-31] MEDS: NICOTINE 21 MG/24 HR TDSY TD SCH (12:41)
[2020-02-01] MEDS: PANTOprazole 40 MG TAB PO SCH (08:53)
[2020-02-01] MEDS: NICOTINE 21 MG/24 HR TDSY TD SCH (08:53)
[2020-02-01] MEDS ORDERED: CITALOPRAM 20 MG TAB PO SCH (09:00)
[2020-02-01 10:15] LABS: Calcium 8.8 mg/dl (8.5-10.1); Creatinine Clr Calc Pharmacy 58.1 ml/min; Est GFR (African American) 83.1; Est GFR (Non-African American) 71.7; Potassium 4.1 mmol/L (3.5-5.1)
--- NOTE | 2020-02-01 14:46 | Discharge Summary ---
Date of Service February 01, 2020 History of Present Illness Patient presented to the ER overnight reporting "mental breakdowns" over the past week, and thoughts that "the only way out is to harm myself." She endorsed thoughts of running her car off the road she has no outpatient mental health services, and her PCP prescribes citalopram. She reported frequent mood swings which she described as "like a switch," stating she gets irritable and agitated "over small things." She reported poor sleep, decreased appetite, and "social" alcohol use, but denied drug use. Denied hallucinations, paranoia, delusions, and current SIB, but reported to history of cutting superficially as an adolescent. Stressors include that she moved to [place], [place] in June to live with her girlfriend, but the move and her new job there were stressful, so she moved back to [place] to live with her mother 1 month ago. She travels to [place] on weekends to see her girlfriend. Admission labs were notable for WBC 13.62, potassium 3.0, chloride 110, AST 14, UA with elevated urine pH, trace leukocyte esterase, > 30 epithelial cells and 1+ bacteria, negative test, and negative UDS. She initially agreed to the recommendations for voluntary treatment, but then said she wanted to go home. 302 involuntary commitment was discussed, and she then agreed to sign in, but immediately submitted a 72-hour notice on arrival to the unit. She was tearful and asked multiple times to go home, saying she only came into the hospital to get outpatient treatment. On my assessment, she states that she does not want to be here, feels the ER did not listen to her and "forced me to sign in," by threatening to 302 her. She states that she only came to the ER because she wanted help with setting up outpatient treatment, and that she had not followed through on the referrals given to her by her PCP because she was busy with work and driving back and forth to [place], as she went on vacation there last week to visit her girlfriend. 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 She reports mood has been poor since June, with depression, irritability, decreased interest, motivation, and energy, and disrupted sleep (increased latency, then does not want to get up in the morning). She endorses suicidal thoughts that occur "sometimes when I am driving," with thoughts to drive her car off the edge of the road, but denies any intent to act on these. She wonders if she has bipolar because she often gets angry at her girlfriend about the division of housework, and will "blow up," although denies physical aggression. Denies symptoms consistent with sahra, psychosis, panic, and OCD. Report excessive worry, typically about what others think of her and about her job, with episodes of hand and throat numbness and a sensation of her heart racing which can last minutes to hours. She typically uses coping skills to manage anxiety. She lost 17 pounds in the past 1-1/2 years and attributes this to using a nicotine vapor pen. She reports a history of limited medication adherence, stating she frequently forgets to take her medication. She was just started on citalopram 3 weeks ago, and denies side effects. She is willing for a family meeting with her mother and referrals for outpatient treatment, and repeatedly asks if she can be discharged today. Physical Exam Psychiatric Orientation: alert, oriented x 3 and cooperative Apperance: appropriately dressed, appropriately groomed and appeared stated age Eye Contact: good eye contact Motor Behavior: steady gait and station Speech: normal rate/rhythm/volume of speech Affect: euthymic affect "Much better." She acknowledges that she has suffered from intermittent depression since her parents divorce approximately 10 years ago. Thought Process: goal directed thought process, linear/logical thought process and clear/coherent thought process Thought Content: reality based without delusions Suicidal Thoughts: denies suicidal thoughts Homicidal Thoughts: denies homicidal thoughts Hallucinations: no auditory hallucinations and no visual hallucinations Cognition: recent memory grossly intact, remote memory grossly intact, attention grossly intact and language grossly intact Estimated Intelligence: average estimated intelligence Insight: + fair insight Judgement: + fair judgement Vital Signs (Past 24 Hours) Last Vital Signs Temp 36.8 C 02/01/20 12:50 Pulse 71 02/01/20 12:50 Resp 16 02/01/20 12:50 BP 117/83 02/01/20 12:50 Pulse Ox 100 02/01/20 12:50 Principal Diagnosis Depression Psychiatric Data During the brief course of hospitalization the patient was offered various modalities of psychiatric treatment and education. These included individual, group, activity therapies, and on 2 occasions, family interventions. She is also provided with chemotherapy. Her initial dose of citalopram was increased from 10 mg a day to 20 mg a day, the patient reported that she was not aware of any adverse effects from citalopram at either dose. In activity and group therapies the patient focused largely upon improving her individual coping strategies. She acknowledges that she sometimes tends to be passive, but when upset she observes that she tends to sometimes "overreact" and say things that she does not really mean. Within this context, the patient considered the fact that she had made several direct threats of self-harm and had -- at least according to the patient's family --asserted that she could not necessarily contract for her own safety. During the stay, the patient said that she does not recall making statements that were quite that blunt, but she does acknowledge that she had threatened suicide. She consistently denied being actually suicidal during the hospital stay, but did acknowledge that she has some difficulty regulating her mood and has been depressed, fairly constantly, since her parents approximately 10 years ago. Patient also cites work- related stressors. 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 The patient also discussed the fact that, in retrospect, she believes that she honored threats of suicide as a means of communicating her distress to her mother. The patient noted that she feels as if her mother does not necessarily listen to her or understand her emotional distress, and she also acknowledges a role in the fact that she and her mother apparently frequently bicker. The patient describes this as a "bad habit" that they both have, and following a somewhat acrimonious family intervention with the 7th grade social studies teacher on the day before discharge, with fairly clear "parent/child" dynamics, the patient said that she wants to practice communicating more effectively and more calmly with her mother. Within this context, a second family meeting was held on the day of discharge. That meeting went quite well, and the staff churner noted that the patient did a very good job of remaining levelheaded and in expressing her feelings to her mother without hyperbole or blame assignment. The patient worked hard to develop a thorough plan of community safety prior to release. The treatment team agreed that the patient's condition had improved to the degree that she could safely and appropriately be discharged to the community, with plans for continued outpatient treatment. Patient was then discharged to the community with a plan for outpatient aftercare. Day of Discharge Assessment On the day of discharge the patient was found to be appropriately dressed, appropriately groomed, pleasant, and cooperative. She spoke spontaneously and had a normal rate and volume. Her thought processes demonstrated tight associations, and her thought content was devoid of any psychotic features. The patient was able to openly discuss the fact that she realizes that she does not yet have a full complement of personal coping strategies, and that her tendency is either to withdraw and be silent, or, under other circumstances "overreact." She indicates that she hopes to work on this as an outpatient. The patient also says that she feels that she has learned improved coping strategies as evidenced by her harmonious family encounter with her mother earlier today. There is no evidence of any perceptual disturbances. The patient's intelligence is estimated to be at least average. The patient's judgment and insight are both at least fair, consistent with an individual who may be described as a somewhat immature 19-year-old woman. Transition of Care Transition Of Care Record: was reviewed with the patient Advance Directives Advance Directives Information Provided: Yes Advance Directives: No Mental Health Advance Directive: No Advance Directives on File: No Living Will: No Power of Plate Finisher: No Advance Directives Reason:: Declines as Mental Health Visit. Risk Factors Assessment Male: No : Yes Do You Have Access To A Gun?: Yes (She hunts and has guns at father's house) Health Problems: Yes Mental Health Diagnoses: Yes Substance Use Disorders: Yes Previous Attempt: No Family History of Suicide: No Previous Psychiatric Hospitalization: No Hopelessness: No Smoker: Yes Protective Factors Assessment Zoroastrianism Beliefs: No : No Responsible for Young Children: No Employed: Yes ([employer] office) Stable Relationships: No Supportive Family: Yes Tobacco Cessation at Discharge Tobacco Cessation Medication Prescribed at Discharge: Offered & Pt Refused Practical counseling provided including: recognizing danger situations, developing coping skills and providing basic information about quitting Tobacco Cessation Outpatient Followup: Referral for outpatient treatment offered and refused Total Time Total Time Spent: Greater Than 30 Minutes Total Time Includes: Examination of the patient, Discharge Planning and Communication with other providers Discharge Data Lab Results 01/30/20 01/30/20 01/30/20 19:22 19:22 19:22 WBC RBC Hgb Hct MCV MCH MCHC RDW Std Deviation RDW Coeff of Vadim Plt Count MPV Immature Gran % (Auto) Neut % (Auto) Lymph % (Auto) [place] % (Auto) Eos % (Auto) Baso % (Auto) Neut # (Auto) Lymph # (Auto) [place] # (Auto) Eos # (Auto) Baso # (Auto) Immature Gran # (Auto) Sodium Potassium Chloride Carbon Dioxide Anion Gap BUN Creatinine Est Cr Clr Drug Dosing Est GFR ( Amer) Est GFR (Non-Af Amer) BUN/Creatinine Ratio Glucose Calcium Total Bilirubin AST ALT Alkaline Phosphatase Total Protein Albumin Globulin Albumin/Globulin Ratio TSH Urine Color Yellow Urine Appearance Cloudy A Urine pH >= 9.0 H Ur Specific [place] 1.020 Urine Protein Negative Urine Glucose (UA) Negative Urine Ketones Negative Urine Blood Negative Urine Nitrite Negative Urine Bilirubin Negative Urine Urobilinogen Negative Ur Leukocyte Esterase Trace H Urine WBC (Auto) 1-5 Urine RBC (Auto) 0-4 U Hyaline Cast (Auto) 1-5 U Epithel Cells (Auto) >30 H Urine Bacteria (Auto) 1+ H Urine Test Negative Salicylates Urine Opiates Screen Neg Ur Methadone, Qual Neg Acetaminophen Urine Barbiturates Neg Ur Phencyclidine (PCP) Neg U Amphetamin/Meth Scrn Neg MDMA (Ecstasy) Screen Neg U Benzodiazepines Scrn Neg Ur Cocaine Metabolite Neg U Marijuana (THC) Screen Neg Ethyl Alcohol mg/dL 01/30/20 01/30/20 01/30/20 20:19 20:19 20:19 WBC 13.62 H RBC 4.76 Hgb 14.2 Hct 42.7 MCV 89.7 MCH 29.8 MCHC 33.3 RDW Std Deviation 39.9 RDW Coeff of Vadim 12.3 Plt Count 294 MPV 10.2 Immature Gran % (Auto) 0.6 Neut % (Auto) 49.8 Lymph % (Auto) 38.4 [place] % (Auto) 10.0 Eos % (Auto) 1.0 Baso % (Auto) 0.2 Neut # (Auto) 6.78 H Lymph # (Auto) 5.23 H [place] # (Auto) 1.36 H Eos # (Auto) 0.14 Baso # (Auto) 0.03 Immature Gran # (Auto) 0.08 H Sodium 141 Potassium 3.0 L Chloride 110 H Carbon Dioxide 23 Anion Gap 8.0 BUN 18 Creatinine 1.02 Est Cr Clr Drug Dosing 62.7 Est GFR ( Amer) 91.1 Est GFR (Non-Af Amer) 78.6 BUN/Creatinine Ratio 17.8 Glucose 79 Calcium 8.8 Total Bilirubin 0.3 AST 14 L ALT 20 Alkaline Phosphatase 104 Total Protein 6.8 Albumin 3.6 Globulin 3.2 Albumin/Globulin Ratio 1.1 TSH 1.700 Urine Color Urine Appearance Urine pH Ur Specific [place] Urine Protein Urine Glucose (UA) Urine Ketones Urine Blood Urine Nitrite Urine Bilirubin Urine Urobilinogen Ur Leukocyte Esterase Urine WBC (Auto) Urine RBC (Auto) U Hyaline Cast (Auto) U Epithel Cells (Auto) Urine Bacteria (Auto) Urine Test Salicylates < 1.7 L Urine Opiates Screen Ur Methadone, Qual Acetaminophen < 2 L Urine Barbiturates Ur Phencyclidine (PCP) U Amphetamin/Meth Scrn MDMA (Ecstasy) Screen U Benzodiazepines Scrn Ur Cocaine Metabolite U Marijuana (THC) Screen Ethyl Alcohol mg/dL 01/30/20 02/01/20 20:19 09:24 WBC RBC Hgb Hct MCV MCH MCHC RDW Std Deviation RDW Coeff of Vadim Plt Count MPV Immature Gran % (Auto) Neut % (Auto) Lymph % (Auto) [place] % (Auto) Eos % (Auto) Baso % (Auto) Neut # (Auto) Lymph # (Auto) [place] # (Auto) Eos # (Auto) Baso # (Auto) Immature Gran # (Auto) Sodium 139 Potassium 4.1 D Chloride 108 H Carbon Dioxide 25 Anion Gap 6.0 BUN 16 Creatinine 1.10 Est Cr Clr Drug Dosing 58.1 Est GFR ( Amer) 83.1 Est GFR (Non-Af Amer) 71.7 BUN/Creatinine Ratio 15.0 Glucose 108 H Calcium 8.8 Total Bilirubin AST ALT Alkaline Phosphatase Total Protein Albumin Globulin Albumin/Globulin Ratio TSH Urine Color Urine Appearance Urine pH Ur Specific [place] Urine Protein Urine Glucose (UA) Urine Ketones Urine Blood Urine Nitrite Urine Bilirubin Urine Urobilinogen Ur Leukocyte Esterase Urine WBC (Auto) Urine RBC (Auto) U Hyaline Cast (Auto) U Epithel Cells (Auto) Urine Bacteria (Auto) Urine Test Salicylates Urine Opiates Screen Ur Methadone, Qual Acetaminophen Urine Barbiturates Ur Phencyclidine (PCP) U Amphetamin/Meth Scrn MDMA (Ecstasy) Screen U Benzodiazepines Scrn Ur Cocaine Metabolite U Marijuana (THC) Screen Ethyl Alcohol mg/dL < 3.0 Hospital Course (1) Suicidal ideation: 01/30 -every 15 minute checks for safety, encourage group attendance and participation, work on healthy coping skills and discharge safety plan. (2) Depression: 01/30 -reviewed options, including switch to a different antidepressant (although we do not have a full medication history so I am not sure what she has tried in the past), or titrating citalopram as she has never been on doses over 10 mg. She agreed to increase her dose to 20 mg. Continue to titrate to an effective dose. -Family meeting with mother. Reviewed recommendations that guns be secured until she has stabilized. 01/31 -The patient reports that she feels that she has tolerated the increase in her dose of citalopram to 20 mg a day and notes no adverse effects. She was educated regarding the material risks and anticipated benefits of higher dose citalopram, and she was also advised that it may be necessary to further titrate her dose following discharge. -She reports that her mood has improved, but she acknowledges that she still struggles with depression. -The patient has been referred for outpatient care and treatment and has scheduled her appointments. -And had been reported that the patient had threatened suicide and had indicated that she was not certain she could contract for safety prior to the admission. However, during the brief stay the patient consistently denied that she had actually been suicidal, and, instead, with some degree of embarrassment she acknowledges that she had altered suicidal threats as a means of communicating to others that she was experiencing significant emotional distress. The patient has no history of intentional self-injurious behaviors. She reports that she has sometimes has passive thoughts of or of "not existing," but these thoughts are not associated with any active suicidal plan or suicidal intent. -The patient was able to practice her improved coping strategies and communication styles during a therapeutic family intervention on the day of discharge. (3) Nicotine addiction: Offer patch and gum as needed for cravings. Patient declined during the stay and said that she does not feel that she needs nicotine replacement. Mental Health & Subst Abuse Tx Psychiatrist Name of Psychiatrist: Adeline Sampson ([place] or telehealth) Psychiatrist's Psychiatric Appointment Comment: Will be scheduled after intake on 02/05 Psychiatrist Release of Information: Obtained, Reviewed and Signed Therapist Name of Therapist: Adeline Villatoro Dudley (intake for therapy and med management) Therapist's Date of Therapist Appointment: 02/06/20 Time of Therapist Appointment: 11am Therapy Appointment Comment: [id number] Therapist Release of Information: Obtained, Reviewed and Signed Farm Machine Operator Name of Farm Machine Operator: None Post Discharge Appointments Primary Care Physician Name Of Family Doctor: [facility] Date of Appointment with PCP: 02/15/20 Time of Appointment with PCP: 9am Provider Appointment Comment: follow-up until able to get psychiatry appt with Surinder & for [facility] Release of Information: Obtained, Reviewed and Signed Smoking Cessation Counseling Tobacco Cessation Medication Prescribed at Discharge: Offered & Pt Refused Tobacco Cessation Counseling: Offered and Refused Contact Information Discharge Discharge Address: [address] [place] [address] Discharge Plan Discharge Items Patient Disposition: Home - Self-Care Reason For Visit: DEPRESSION, SI Discharge Diagnosis: Depression Activity: Resume your previous activity Non-emergency contact: Primary Care Provider and Psychiatrist Call non-emergency contact if: you have any medication questions Follow-up/Referrals: Angela Reed MD [Primary Care Provider] - Diet: Regular Addtl Attending Provider Instructions: SPECIAL CARE INSTRUCTIONS: 1. Follow through with your scheduled aftercare appointments. If unable to keep an appointment, please call to reschedule. 2. Take your medication only as prescribed. Medication should not be changed or stopped without the approval of your doctor. In the event of worsening symptoms or concerns about side effects, contact your doctor immediately. 3. Utilize new healthy coping skills, anger management skills, and stress management skills learned during your hospitalization. Journal feelings and process them with a support person. Identify stressors or situations that may result in relapse, deterioration or inappropriate behaviors and develop a plan to deal with those issues. 4. If your coping skills are ineffective and you are in crisis, contact your outpatient providers for direction. If unable to reach your providers, please call the CAN HELP LINE AT or go to the closest Emergency Room. 5. Avoid alcohol and un-prescribed drugs. 6. You have been provided with the Mental Health Advance Directives Pamphlet for your review. AFTERCARE APPOINTMENTS: * Please call your insurance company prior to your scheduled appointment to confirm your aftercare providers are covered. Take your insurance information to your appointments. WHO TO CALL AND WHEN: Medical Emergencies: For questions or emergencies related to your hospital stay, please contact the Inpatient Behavioral Health Unit at [phone]. A psychiatric aide is on-call 10/01 for the Behavioral Health Unit for emergencies At any time you feel your situation is an emergency, you may also call 911 immediately. Your Doctors Instructions noted above were prepared by provider Cash Couch MD. Pending Studies at Discharge: No Stand-Alone Forms: My [facility] [employer], Smoking Cessation, Suicide Prevention Resources Medications and DC Order Prescriptions: New citalopram 20 mg Tablet 20 mg PO QAM Qty: 30 RF: 0 hydroxyzine HCl 25 mg Tablet 50 mg PO HSZ PRN (Reason: Sleep) Qty: 15 RF: 1 Continued pantoprazole [Protonix] 40 mg tablet,delayed release (DR/EC) 40 mg PO DAILY Qty: 30 RF: 5 Zyrtec 10 mg capsule 10 mg PO DAILY PRN (Reason: allergy symptoms) RF: 0 Discontinued citalopram 10 mg tablet 10 mg PO DAILY Qty: 30 RF: 2 Discharge Orders: Discharge Order (Routine); Ordered 02/01/20 Ordered By: Cash Couch Admission Data Admit Date/Time: 01/31/20 01:17 Attending Provider: Suha Holden Admit Provider: Suraj Rivera Primary Care Provider: Angela Reed Other Interventions: Discharge Summary Assessment (RN) Last Done: 02/01/20 12:50 PSY Interdisciplinary Discharge Planning Last Done: 02/01/20 12:49 C[place] [address] D/C day mgmt > 30 min Patient Type Established History Expanded Problem Focused Exam Expanded Problem Focused Medical Decision Making Moderate Complexity Diagnoses Suicidal ideation R45.851 Depression F32.1 Active/Remission status: currently active Depression Type: major depressive disorder Major depression episode severity: moderate Major depression recurrence: single episode Nicotine addiction F17.200 Time Spent (min) 60
== END 2020-02-01 13:05 | disposition home or self-care (01) | DRG 885 ==
LOC: ED 19:11 → 3S 01-31 01:17